=== PATIENT | female | born 1975 | race Caucasian/White ===

== ENCOUNTER → 2018-03-11 | Outpatient (CLI) | payer OTHER ==
--- NOTE | 2018-03-11 16:01 | KCIC ---
THYROID ULTRASOUND: 03/11/2018 3:45 PM Indication: 42 years old Female. Enlarged thyroid. Comparison: None. FINDINGS: Sonographic evaluation of the thyroid gland was performed utilizing grayscale and color Doppler. Right lobe: Normal in morphology and echotexture. Size: 4.8 x 2.1 x 1.8 cm Nodules: There is a solid, circumscribed nodule in the mid right thyroid lobe measuring 1.5 x 1.3 x 1.3 cm which is predominantly hypoechoic without significant internal echogenic foci. This nodule is taller than it is wide and moderately suspicious. Ultrasound-guided fine-needle aspiration may be of benefit. Left lobe: Normal in morphology and echotexture. Size: 4.6 x 1.3 x 2.2 cm Nodules: There is a 7 x 6 x 7 mm solid, circumscribed nodule in the posterior inferior left thyroid lobe which is predominant hypoechoic without suspicious internal echogenic foci. This nodule is wider than it is tall. This finding is mildly suspicious. Isthmus: Unremarkable. IMPRESSION: Midpole right thyroid nodule measures 15 x 13 x 13 mm and has imaging characteristics which warrant ultrasound guided fine-needle aspiration. Electronically signed by: Luann Sheridan MD (03/11/2018 3:57 PM) [email or web address]
== END | disposition home or self-care (01) ==
LOC: KCIC US 14:10
PROVIDERS: ATTEND Nurse Practitioner Family
DX: E04.1 Nontoxic single thyroid nodule (principal)
CPT/HCPCS: 76536

== ENCOUNTER 2021-05-15 09:49 | Emergency (ER) | payer OTHER ==
[~2021-05-15] VITALS: Ht 172.7 cm; Wt 109.2 kg
[2021-05-15] MEDS ORDERED: IV NORMAL SALINE 1000ML BAG 1,000 ML IV ONE (10:45)
[2021-05-15 10:49] LABS: BASO # 0.1 x10^3/uL (0.0-0.2); BASO % 0 % (0-3); EOS % 0 % (0-3); HEMATOCRIT 44.3 % (36.0-47.0); HEMOGLOBIN 15.1 g/dL (12.0-15.5); LYMPH # 2.1 x10^3/uL (1.0-4.8); LYMPH % 13 % (24-48); MEAN CORPUSCULAR HEMOGLOBIN 32 pg (25-35); MEAN CORPUSCULAR HGB CONC 34 g/dL (31-37); MEAN CORPUSCULAR VOLUME 93 fL (79-100); MONO # 0.9 x10^3/uL (0.0-1.1); MONO % 6 % (0-9); NEUT # 13.2 x10^3/uL (1.8-7.7); NEUT % 81 % (31-73); PLATELET COUNT 375 x10^3/uL (140-400); RED BLOOD COUNT 4.78 x10^6/uL (3.50-5.40); RED CELL DISTRIBUTION WIDTH 12.6 % (11.5-14.5); WHITE BLOOD COUNT 16.4 x10^3/uL (4.0-11.0)
[2021-05-15 10:53] LABS: CALCIUM 9.2 mg/dL (8.5-10.1); CREATININE 0.9 mg/dL (0.6-1.0); GFR 67.1
[2021-05-15 11:03] LABS: ALBUMIN 3.8 g/dL (3.4-5.0); ALBUMIN/GLOBULIN RATIO 0.7 (1.0-1.7); TOTAL BILIRUBIN 0.4 mg/dL (0.2-1.0)
[2021-05-15 11:06] VITALS: BP 189/84
[2021-05-15] MEDS ORDERED: KETOROLAC 30 MG/ML VIAL. IVP ONE (11:15)
--- NOTE | 2021-05-15 11:29 | RAD ---
PQRS Compliance Statement: One or more of the following individualized dose reduction techniques were utilized for this examinat ion: 1. Automated exposure control 2. Adjustment of the mA and/or kV according to patient size 3. Use of iterative reconstruction technique CT abdomen/pelvis without contrast 05/15/2021 10:51 AM INDICATION: Right costovertebral tenderness, flank pain COMPARISON: None available TECHNIQUE: Multiple axial CT images of the abdomen and pelvis were obtained without intravenous contr ast. Coronal and sagittal reformats are provided. FINDINGS: Lung bases are clear. Heart size within normal limits. Diffuse hypoattenuation the hepatic parenchyma suggestive of hepatic steatosis. Mild hepatomegaly bam suring 24.6 cm in craniocaudal dimension at the mid clavicular line. 7 mm lesion within the right hep atic lobe is indeterminate on the basis of background hepatic steatosis (series 2, image 42). Gallbla dder is present. Spleen, adrenal glands and pancreas are normal in appearance. The abdominal aorta is normal in course and caliber. There are no pathologically enlarged lymph nodes in the abdomen and pelvis. There is no abdominal free fluid. There is no free intraperitoneal air. The kidneys are relatively symmetric in appearance. There is no suspicious renal mass within the limi tations of a noncontrast examination. There is no hydronephrosis. There are no calculi within the kid neys, ureters or urinary bladder. Small and large bowel are normal in caliber. There is no evidence for bowel obstruction. There are no pericolonic inflammatory changes. A normal, nondilated appendix is visualized without adjacent infla mmatory changes. Hysterectomy changes are suspected. There is a soft tissue nodule arising from the vaginal cuff measu ring 1.5 x 1.4 x 1.3 cm. Ovaries are visualized and separate without suspicious mass. No suspicious osseous abnormality is identified. IMPRESSION: 1. No acute abnormalities identified within the abdomen and pelvis. 2. Diffuse hepatic steatosis. 3. Indeterminate soft tissue nodule arises from the vaginal cuff measuring 1.5 x 1.4 x 1.3 cm. This m ay contain calcification given slightly higher attenuation. Tissue sampling could be of benefit. 4. 7 mm lesion within the right hepatic lobe is indeterminate on the basis of background hepatic stea tosis (series 2, image 42). Attention on follow up imaging versus abdominal MRI with and without cont rast could be of benefit. Electronically signed by: Luann Sheridan MD (05/15/2021 11:27 AM) [id number]
[2021-05-15 11:32] LABS: BACTERIA,URINE 0 /HPF (0-FEW); RBC,URINE 0 /HPF (0-2); WBC,URINE OCC /HPF (0-4)
--- NOTE | 2021-05-15 11:43 | RAD ---
EXAM: ULTRASOUND ABDOMEN LIMITED CLINICAL HISTORY: Reason: RUQ PAIN COMPARISON: CT abdomen pelvis from today. TECHNIQUE: Limited ultrasound examination of the right upper quadrant of the abdomen was performed. FINDINGS: Pancreas was obscured by bowel gas. The liver is very echogenic consistent with diffuse fatty infiltr ation very difficult to evaluate. No gallstones are noted. Gallbladder wall was not thickened. Common duct was normal measuring 5 mm. Right kidney was 12.9 cm in length without hydronephrosis. IMPRESSION: 1. No gallstones noted. 2. Normal common duct. 3. Diffuse fatty liver change. Electronically signed by: Berlin Ortiz MD (05/15/2021 11:40 AM) [id number]
--- NOTE | 2021-05-15 11:54 | PHYS DOC ---
Past Medical History Past Surgical History: Hysterectomy Smoking Status: Former Smoker Alcohol Use: None General Adult EDM: Chief Complaint: BACK PAIN OR INJURY HPI: HPI: Patient is a 45-year-old female presents to the emergency department complaining of slow onset of right-sided mid back pain. Patient reports she woke up approximately 7 days ago experiencing a 5 out of 10 pain. Patient denies traumatic injury, denies exercise or other physical activity that may have injured her back. 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 Patient reports her pain increasing over the past 7 days and is now a 10 out of 10. Patient states little to no relief with taking ntcz-xww-albuyic 2 tablets of extra strength Tylenol yesterday at 10 AM. Patient has not tried other medications or nonpharmacological pain relief methods. Patient denies allergies to medications, states she is seeing her primary care provider Magalis Tate APRN this past Saturday and was started on meloxicam to take twice a day for pain. Patient states it did not seem to be helping so she is not taking this medication. Patient does report increased urinary frequency, denies urinary pressure, urinary burning, hematuria or other dysuria. Patient denies rashes or lesions to her vagina, denies vaginal discharge, denies abdominal discomfort or pelvic pain. Denies nausea vomiting or diarrhea. Denies chest pains or chest palpitations, denies chest or nasal congestion, denies recent fever or chills. Patient denies other physical complaints or physical concerns. Patient denies any past medical history of kidney stones or gallbladder disease. Patient states her primary care provider is concerned she may have gallstones and has scheduled her for an outpatient abdominal sonogram related to intermittent abdominal discomfort after eating. Patient does not complain of abdominal discomfort today. Review of Systems: Review of Systems: 14 body systems of review of systems have been reviewed. See HPI for pertinent positives and negative responses, otherwise all other systems are negative, nonpertinent or noncontributory. Constitutional: Negative except as outlined in HPI above. Skin: Negative except as outlined in HPI above. Eyes: Negative except as outlined in HPI above. HENT: Negative except as outlined in HPI above. Respiratory: Negative except as outlined in HPI above. Cardiovascular: Negative except as outlined in HPI above. GI: Negative except as outlined in HPI above. : Negative except as outlined in HPI above. Musculoskeletal: Negative except as outlined in HPI above. Integument: Negative except as outlined in HPI above. Neurologic: Negative except as outlined in HPI above. Endocrine: Negative except as outlined in HPI above. Lymphatic: Negative except as outlined in HPI above. Psychiatric: Negative except as outlined in HPI above. Heart Score: C/O Chest Pain: No Risk Factors: Risk Factors: DM, Current or recent (<one month) smoker, HTN, HLP, family history of CAD, obesity. Risk Scores: Score 0 - 3: 2.5% MACE over next 6 weeks - Discharge Home Score 4 - 6: 20.3% MACE over next 6 weeks - Admit for Clinical Observation Score 7 - 10: 72.7% MACE over next 6 weeks - Early Invasive Strategies Current Medications: Current Medications Medications (Trade) Dose Ordered Sig/Humberto Start Time Stop Time Status Last Admin Dose Admin Ketorolac Tromethamine (Toradol 30mg Vial) 30 mg 1X ONCE 05/15/21 11:15 05/15/21 11:16 DC 05/15/21 11:05 30 MG Sodium Chloride 1,000 ml @ 1,000 mls/hr 1X ONCE 05/15/21 10:45 05/15/21 11:44 DC 05/15/21 11:05 1,000 MLS/HR Allergies: Allergies: Allergies Coded Allergies Type Severity Reaction Last Updated Verified No Known Drug Allergies 05/15/21 No Physical Exam: PE: Constitutional: Well developed, well nourished, no acute distress, non-toxic appearance. 45-year-old female in no apparent distress. HENT: Normocephalic, atraumatic. Oropharynx moist, pink, no deep tissue infect ion process appreciated. No lymphadenopathy of the head or neck appreciated. Bilateral TMs intact within normal limits. Eyes: Conjunctiva normal, no discharge. No scleral icterus. Neck: Normal range of motion, no stridor. No nuchal rigidity, no meningismus signs. Cardiovascular: No cyanosis appreciated, distal cap refill less than 2 seconds. Heart sounds S1-S2 to auscultation, regular rate and rhythm. Lungs & Thorax: Patient is in no respiratory distress, no audible adventitious lung sounds appreciated. Lung sounds clear to auscultation all lung pitt. Abdomen: Nontender, no abnormalities noted. Patient is morbidly obese, BMI 36.6, abdomen round, no skin discoloration of the abdomen appreciated. Skin: Warm, dry, no erythema, no rash. Skin color normal for ethnicity. Back: No midline spinal tenderness appreciated, no deformities appreciated, no crepitus, no step-offs appreciated, there is no bruising or contusions of the back appreciated. There is pain to palpation just superior to the right CVA, there is no left-sided CVA TTP. Extremities: No tenderness, no cyanosis, no clubbing, ROM intact, no edema. Neurologic: Alert and oriented X 3, normal motor function, normal sensory function, no focal deficits noted. Psychologic: Affect normal, judgement normal, mood normal. Current Patient Data: Labs: Laboratory Tests Test 05/15/21 10:15 05/15/21 10:27 Urine Collection Type Void Urine Color (Auto) Yellow Urine Turbidity Hazy Urine pH (Auto) 6.0 (<5.0-8.0) Urine Specific Lawson 1.022 (1.000-1.030) Urine Protein (Auto) Negative mg/dL (Negative) Urine Glucose (Auto)(UA) Negative mg/dL (Negative) Urine Ketones (Auto) Negative mg/dL (Negative) Urine Blood (Auto) Negative (Negative) Urine Nitrite Negative (Negative) Urine Bilirubin (Auto) Negative (Negative) Urine Urobilinogen (Auto) Normal mg/dL (Normal) Urine Leukocyte Esterase (Auto) Negative (Negative) Urine RBC 0 /HPF (0-2) Urine WBC Occ /HPF (0-4) Urine Squamous Epithelial Cells Many /LPF Urine Bacteria 0 /HPF (0-FEW) Urine Mucus Slight /LPF White Blood Count 16.4 x10^3/uL (4.0-11.0) H Red Blood Count 4.78 x10^6/uL (3.50-5.40) Hemoglobin 15.1 g/dL (12.0-15.5) Hematocrit 44.3 % (36.0-47.0) Mean Corpuscular Volume 93 fL (79-100) Mean Corpuscular Hemoglobin 32 pg (25-35) Mean Corpuscular Hemoglobin Concent 34 g/dL (31-37) Red Cell Distribution Width 12.6 % (11.5-14.5) Platelet Count 375 x10^3/uL (140-400) Neutrophils (%) (Auto) 81 % (31-73) H Lymphocytes (%) (Auto) 13 % (24-48) L Monocytes (%) (Auto) 6 % (0-9) Eosinophils (%) (Auto) 0 % (0-3) Basophils (%) (Auto) 0 % (0-3) Neutrophils # (Auto) 13.2 x10^3/uL (1.8-7.7) H Lymphocytes # (Auto) 2.1 x10^3/uL (1.0-4.8) Monocytes # (Auto) 0.9 x10^3/uL (0.0-1.1) Eosinophils # (Auto) 0.0 x10^3/uL (0.0-0.7) Basophils # (Auto) 0.1 x10^3/uL (0.0-0.2) Platelet Estimate Pending Sodium Level 135 mmol/L (136-145) L Potassium Level 4.0 mmol/L (3.5-5.1) Chloride Level 102 mmol/L (98-107) Carbon Dioxide Level 23 mmol/L (21-32) Anion Gap 10 (6-14) Blood Urea Nitrogen 18 mg/dL (7-20) Creatinine 0.9 mg/dL (0.6-1.0) Estimated GFR (Cockcroft-Gault) 67.1 BUN/Creatinine Ratio 20 (6-20) Glucose Level 135 mg/dL (70-99) H Calcium Level 9.2 mg/dL (8.5-10.1) Total Bilirubin 0.4 mg/dL (0.2-1.0) Aspartate Amino Transferase (AST) 68 U/L (15-37) H Alanine Aminotransferase (ALT) 50 U/L (14-59) Alkaline Phosphatase 135 U/L (46-116) H Total Protein 9.0 g/dL (6.4-8.2) H Albumin 3.8 g/dL (3.4-5.0) Albumin/Globulin Ratio 0.7 (1.0-1.7) L Lipase 72 U/L (73-393) L Laboratory Tests 05/15/21 10:27 Laboratory Tests 05/15/21 10:27 Vital Signs: Vital Signs Date Time Temp Pulse Resp B/P (MAP) Pulse Ox O2 Delivery O2 Flow Rate FiO2 05/15/21 11:06 86 16 189/84 (119) 98 Room Air 05/15/21 09:55 98.3 98.3 EKG: EKG: [] Radiology/Procedures: Radiology/Procedures: PROCEDURE: ABDOMEN LTD EXAM: ULTRASOUND ABDOMEN LIMITED CLINICAL HISTORY: Reason: RUQ PAIN COMPARISON: CT abdomen pelvis from today. TECHNIQUE: Limited ultrasound examination of the right upper quadrant of the abdomen was performed. FINDINGS: Pancreas was obscured by bowel gas. The liver is very echogenic consistent with diffuse fatty infiltration very difficult to evaluate. No gallstones are noted. Gallbladder wall was not thickened. Common duct was normal measuring 5 mm. Right kidney was 12.9 cm in length without hydronephrosis. IMPRESSION: 1. No gallstones noted. 2. Normal common duct. 3. Diffuse fatty liver change. Electronically signed by: Berlin Ortiz MD (05/15/2021 11:40 AM) [id number] REASON: Right CVA/flank pain PROCEDURE: CT ABDOMEN PELVIS WO CONTRAST PQRS Compliance Statement: One or more of the following individualized dose reduction techniques were ut ilized for this examination: 1. Automated exposure control 2. Adjustment of the mA and/or kV according to patient size 3. Use of iterative reconstruction technique CT abdomen/pelvis without contrast 05/15/2021 10:51 AM INDICATION: Right costovertebral tenderness, flank pain COMPARISON: None available TECHNIQUE: Multiple axial CT images of the abdomen and pelvis were obtained without intravenous contrast. Coronal and sagittal reformats are provided. FINDINGS: Lung bases are clear. Heart size within normal limits. Diffuse hypoattenuation the hepatic parenchyma suggestive of hepatic steatosis. Mild hepatomegaly measuring 24.6 cm in craniocaudal dimension at the mid clavicular line. 7 mm lesion within the right hepatic lobe is indeterminate on the basis of background hepatic steatosis (series 2, image 42). Gallbladder is present. Spleen, adrenal glands and pancreas are normal in appearance. The abdominal aorta is normal in course and caliber. There are no pathologically enlarged lymph nodes in the abdomen and pelvis. There is no abdominal free fluid. There is no free intraperitoneal air. The kidneys are relatively symmetric in appearance. There is no suspicious renal mass within the limitations of a noncontrast examination. There is no hydronephrosis. There are no calculi within the kidneys, ureters or urinary bladder. Small and large bowel are normal in caliber. There is no evidence for bowel obstruction. There are no pericolonic inflammatory changes. A normal, nondilated appendix is visualized without adjacent inflammatory changes. Hysterectomy changes are suspected. There is a soft tissue nodule arising from the vaginal cuff measuring 1.5 x 1.4 x 1.3 cm. Ovaries are visualized and separate without suspicious mass. No suspicious osseous abnormality is identified. IMPRESSION: 1. No acute abnormalities identified within the abdomen and pelvis. 2. Diffuse hepatic steatosis. 3. Indeterminate soft tissue nodule arises from the vaginal cuff measuring 1.5 x 1.4 x 1.3 cm. This may contain calcification given slightly higher attenuation. Tissue sampling could be of benefit. 4. 7 mm lesion within the right hepatic lobe is indeterminate on the basis of background hepatic steatosis (series 2, image 42). Attention on follow up imaging versus abdominal MRI with and without contrast could be of benefit. Electronically signed by: Luann Sheridan MD (05/15/2021 11:27 AM) [id number] Course & Med Decision Making: Course & Med Decision Making Pertinent Labs and Imaging studies reviewed. (See chart for details) 45-year-old female, vital signs reviewed, presents to the emergency department concerning right-sided back pain for the past week. Patient's physical examination concerning for renal colic versus musculoskeletal back pain versus other abdominal abnormality will order urinalysis assay, CBC, CMP, lipase, IV pain medication, IV fluids, gallbladder sonogram, CT abdomen pelvis without contrast. The patient's urine is not infected. CMP labs unremarkable, lipase is unremarkable, CBC did show 16.4 WBCs without bandemia, this is likely a stress response, abdominal sonogram was unremarkable for gallbladder disease, CT abdomen pelvis is unremarkable for acute abdominal process, no renal colic appreciated, there were abnormal findings of hepatic steatosis, house radiologist recommended follow-up outpatient CT or MRI. Upon reevaluation of the patient, patient reports some pain relief with pain medication given, patient did drive self to ER for examination, discussed with patient will treat back pain with lidocaine patches, use heating pad at home, will prescribe muscle relaxer, continue home meloxicam medication regimen, strict follow-up with primary care this week, call today for an appointment related to abnormal CT scan findings, reviewed return to ER precautions and concerns, patient gave verbal understanding of and is amenable to ED discharge planning. Discussed with the patient all findings and diagnostic testing as well as the need to follow-up with their primary care provider for further evaluation and treatment or return to the ED if any new or worsening symptoms. Strict return precautions were also discussed at length, the patient voiced understanding and agreement with the discharge planning. The patient was nontoxic in appearance, in no apparent distress, and hemodynamically stable at the time of disposition. Dragon Disclaimer: Dragon Disclaimer: This electronic medical record was generated, in whole or in part, using a voice recognition dictation system. Departure Departure Impression: Primary Impression: Back pain Qualified Codes: M54.6 - Pain in thoracic spine Disposition: HOME / SELF CARE / HOMELESS Condition: GOOD Referrals: MAGALIS KLEIN APRN (PCP) Patient Instructions: Back Pain, Adult Additional Instructions: You were seen today in the emergency department for pain to your right side back of it going on for the past week. Your lab work did not show any concerning findings, your urine was not infected. There were no signs of kidney stone. The sonogram of your abdomen did not show any gallbladder disease, the CT scan did not show any acute abdominal findings that would warrant admission to the hospital or immediate attention by specialist. However I did disclose that were abnormalities of your liver that may require additional MRI or CT scanning. It is important that you follow-up with your primary care provider to review these findings and ongoing management. I am writing you a prescription for lidocaine patches that you may place over the area of discomfort to use for pain, I am also prescribing you a muscle relaxer that you can use up to every 8 hours/day for muscle cramping and discomfort, please continue to use your prescribed meloxicam medication as directed by your doctor. Return to the emergency department for worsening symptoms or other concerns. Thank you for visiting our Emergency Department. It was a pleasure taking care of you today in the emergency department and we appreciate you trusting us with your care. If any additional problems come up don't hesitate to return to visit us. Please follow up with your primary care provider so they can plan additional care if needed and know about the problem that you had. If symptoms worsen come back to the Emergency Department. Any concerning symptoms that start such as chest pain, shortness of air, weakness or numbness on one side of the body, running high fevers or any other concerning symptoms return to the ER. Scripts Lidocaine (Lidocaine PATCH ) 1 Each Adh..patch 1 EACH TP DAILY for FOR LOCAL PAIN, #10 PATCH 0 Refills REMOVE AFTER 12 HOURS Prov: ANNAMARIE RUEDA APRN 05/15/21 Cyclobenzaprine Hcl (CYCLOBENZAPRINE HCL) 10 Mg Tablet 10 MG PO TID, #15 TAB 0 Refills Prov: ANNAMARIE RUEDA APRN 05/15/21 ANNAMARIE RUEDA APRN May 15, 2021 11:54
[2021-05-15] MEDS ORDERED: CYCL10TA19 PO (12:34)
[2021-05-15] MEDS ORDERED: LIDO700A21 TP (12:34)
[2021-05-15 12:44] LABS: % LYMPHS 11 % (24-48); % MONOS 4 % (0-10); % SEGS 85 % (35-66); PLT ESTIMATE ADEQUATE (ADEQUATE)
[2021-05-22] MEDS ORDERED: MELO15TA23 PO (13:12)
== END 2021-05-15 12:50 | disposition home or self-care (01) ==
LOC: ER 09:49
DX: M54.6 Pain in thoracic spine (principal); Z90.710 Acquired absence of both cervix and uterus; Z87.891 Personal history of nicotine dependence
CPT/HCPCS: 36415; 74176; 76705; 80053; 81001; 83690; 85007; 85025; 96361; 96374; 99284; J1885; J7030

== ENCOUNTER → 2021-05-22 | Outpatient (CLI) | payer OTHER ==
[2021-05-15 11:06] VITALS: BP 189/84
[~2021-05-22] MED LIST: CYCL10TA19 PO; GADOTERATE 5 MMOL/10ML VIAL. IVP ONE; LIDO700A21 TP; MELO15TA23 PO
--- NOTE | 2021-05-23 14:43 | KCIC ---
MRI ABDOMEN WITH AND WITHOUT CONTRAST- History: Liver lesion on CT. Technique: Multiplanar, multi sequential without and with intravenous contrast MR imaging was perform ed of the liver with dynamic enhancement. 20 cc Clariscan contrast was given intravenously without co mplication. Comparison: CT abdomen and pelvis 05/15/2021. Ultrasound 05/15/2021. Findings: The liver is enlarged and diffusely fatty replaced. In the right hepatic lobe segment 7 there is an a pproximately 7 mm T1 hypointense, T2 hyperintense lesion which demonstrates peripheral nodular enhanc ement filling on delayed dynamic imaging, with hemangioma. The gallbladder, pancreas, bile ducts, spleen, adrenal glands and kidneys are normal. The lung bases and skeletal structures unremarkable. Visualized portions of the bowel are within normal limits. No i ntra-abdominal free fluid or adenopathy. Impression: 1. 7 mm right hepatic lobe segment 7 lesion is favored to represent hemangioma based on MRI characte ristics, however small sized complete characterization difficult. 2. Hepatic steatosis. The Electronically signed by: Rashard Powers MD (05/23/2021 2:41 PM) [id number]
== END ==
LOC: KCIC MRI 12:26
PROVIDERS: ATTEND Nurse Practitioner Family
DX: K76.89 Other specified diseases of liver (principal); R16.0 Hepatomegaly, not elsewhere classified; K76.0 Fatty (change of) liver, not elsewhere classified
CPT/HCPCS: 74183; A9575